=== PATIENT | male | born 1950 | race Caucasian/White ===

== ENCOUNTER → 2016-12-27 | Day surgery (SDC) | payer MEDICARE, OTHER ==
[~2016-12-27] MED LIST: ACETAMINOPHEN 325 MG TAB ONE; DEXAMETHASONE SOD PHOS 4 MG/ML VIAL ONE; EPINEPHrine HCL (1:1000) 1 MG/ML VIAL ONE; LACTATED RINGER'S 1000 ML INJ 1,000 ML ONE; MIDAZOLAM HCL 2 MG/2 ML VIAL ONE; MOXIFLOXACIN 0.5% OPHT SOLN 3 ML BTL ONE; ONDANSETRON HCL 4 MG/2 ML VIAL IV PUSH ONE; PHENYLEPHRINE HCL 10% OPTH SOLN 5 ML BTL ONE; PROPOFOL 200 MG/20 ML AMP IV ONE; SODIUM CHLORIDE 0.9% INJ 10 ML ONE; TETRACAINE 0.5% OPTH SOLN 15 ML BTL ONE; TOBRAMYCIN/DEXAMETHASONE OPTH OINT 3.5 GM TUBE ONE; TRIAMCINOLONE ACETONIDE 40 MG/ML VIAL ONE; ceFAZolin INJ 1,000 MG VIAL ONE; prednisoLONE ACETATE 1% OPHT SUSP 5 ML BTL ONE
--- NOTE | 2017-01-03 07:47 | MP ---
cc: GEORGE DAMON MD DATE OF SURGERY: 01/02/2017 POSTOPERATIVE DIAGNOSIS Epiretinal membrane, metamorphopsia, macular edema, left eye. POSTOPERATIVE DIAGNOSIS Epiretinal membrane, metamorphopsia, macular edema, left eye. PROCEDURE Pars plana vitrectomy, removal of epiretinal membrane and internal limiting membrane, partial air-fluid exchange, insertion of intravitreal Kenalog, left eye. COMPLICATIONS None. ESTIMATED BLOOD LOSS Less than 1 cc. ANESTHESIA General, Dr. Persaud. INDICATION FOR PROCEDURE This is a delightful patient who presented with worsening metamorphopsia secondary to epiretinal membrane of his left eye. The patient elected for surgical correction understanding the risks, benefits and alternatives. PROCEDURE NOTE After informed consent was obtained, the patient was brought to the operating room and general anesthesia was established. The left eye was prepped and draped in sterile fashion with Betadine in the conjunctival fornix. A three-port pars plana vitrectomy was established with self-retaining infusion cannula. Core vitreous was evacuated. The ERM/ILM complex was highlighted with ICG and removed with Cole ILM forceps. The retina had renewed mobility. Scleral depression examination revealed no retinal holes, tears or detachments. Partial air-fluid exchange was carried out. Intravitreal Kenalog was instilled. Trocars were removed and sclerotomies closed. Subconjunctival injection of Ancef and dexamethasone was given. The eye was patched with Tobramycin ointment. The patient was brought to the recovery room in stable condition. He will continue follow-up at [facility] for his postoperative care. George Damon MD KW/BT /1:05 PM /7:39 AM
== END | disposition home or self-care (01) ==
LOC: ESDC 06:49
PROVIDERS: ATTEND Ophthalmology
DX: H35.372 Puckering of macula, left eye (principal); H53.15 Visual distortions of shape and size; H35.81 Retinal edema
CPT/HCPCS: 00145; 67042; J0171; J0690; J1100; J2250; J2405; J3010; J3301; J7120